=== PATIENT | female | born 1970 | race Caucasian/White ===

== ENCOUNTER → 2019-01-16 | Day surgery (SDC) | payer OTHER ==
[~2019-01-16] MED LIST: IV RINGERS,LACTATED 1000ML 1,000 ML IV SCH; LIDOCAINE 1% PF 2 ML VIAL. ID PRN; MIDAZOLAM HCL/PF 2 MG/2 ML VIAL. IV PRN; PROPOFOL 40 ML IV ONE; fentaNYL PF VIAL 100 MCG/2 ML VIAL IV PRN
[2019-01-16 08:56] VITALS: BP 121/76
--- NOTE | 2019-01-16 09:45 | HP ---
ADMIT DATE: 01/16/2019 UPDATED HISTORY AND PHYSICAL REFERRING PHYSICIAN: Sandra Owen MD REASON: Colorectal screening. HISTORY: A 48-year-old female whose past medical history is significant for hypertension as well as cardiac arrhythmias with a defibrillator as well as an appendectomy, is seen for screening colon exam. Bowel habits are regular without diarrhea or constipation. There has been no melena and/or hematochezia. Weight and appetite are stable. Family history is positive for colon polyps with her mother, but negative for colon cancer. PAST MEDICAL HISTORY: Cardiomyopathy, hyperlipidemia, status post appendectomy, status post defibrillator placement. MEDICATIONS: Include fenofibrate, carvedilol, lisinopril, aspirin, fish oil, vitamin D, disulfiram and multivitamin. FAMILY AND SOCIAL HISTORY: Colon polyps with her mother, hypertension with her grandfather, [place] with her grandfather. Social drinker, nonsmoker. REVIEW OF SYSTEMS: Per records. PHYSICAL EXAMINATION: GENERAL: Reveals a well-nourished, well-developed male, who is alert, cooperative, in no acute distress. VITAL SIGNS: Temp is 97.3, pulse 65, respirations 20. HEENT: Normocephalic and atraumatic head. Pupils and extraocular muscles are not tested. Sclerae anicteric. NECK: Supple. LUNGS: Clear. CARDIOVASCULAR: Reveals an S1 and S2 without S3, S4 or appreciable murmur. Defibrillator is noted in the anterior chest. ABDOMEN: Reveals soft abdomen, normal bowel sounds, without appreciable hepatosplenomegaly, right lower quadrant appendectomy incision. EXTREMITIES: Reveals no cyanosis, clubbing, edema. IMPRESSION: Colorectal screening is warranted at this time. Risks and benefits were discussed with the patient including risk of hemorrhage and perforation. She is willing to proceed. ABDIEL YEH MD DR: STEPHANIE/honey JOB#: [id number] / [id number]
--- NOTE | 2019-01-17 20:06 | PATHOLOGY ---
[facility] Accession Number: [id number] . 01 Material submitted: . colon - ASCENDING COLON POLYP. Modifiers: ascending . 01 Clinical history: . Screening . 02 Diagnosis: Colon, ascending, biopsy: - Adenomatous polyp. . (SKM:mml; 01/17/2019) QL/01/17/2019 . 02 Electronically signed: . Leonardo Adams MD, Pathologist NPI- [id number] . 01 Gross description: . Received in formalin labeled "Vitor Rodriguez, ascending colon polyp," is a single segment of thompson soft tissue measuring 0.6 cm in maximum dimension. The specimen is entirely submitted in cassette A1. (TSD; 01/16/2019) TOB/TOB . 02 Pathologist provided ICD-10: D12.2 . 02 CPT . 652673 Specimen Comment: A courtesy copy of this report has been sent to Specimen Comment: [phone], . Specimen Comment: Report sent to / DR SANDY Performed at: 01 [facility] [address], [place] [id number] MD Maxwell Decker MD Phone: [phone] Performed at: 02 [facility] [address], [place] [id number] MD Kj Wilson MD Phone: [phone]
== END ==
LOC: SURG 07:00
PROVIDERS: ATTEND Internal Medicine Gastroenterology
DX: Z12.11 Encounter for screening for malignant neoplasm of colon (principal); D12.2 Benign neoplasm of ascending colon; K57.30 Diverticulosis of large intestine without perforation or abscess without bleeding; K64.0 First degree hemorrhoids; E78.5 Hyperlipidemia, unspecified; Z80.0 Family history of malignant neoplasm of digestive organs; Z98.890 Other specified postprocedural states; Z95.810 Presence of automatic (implantable) cardiac defibrillator; Z83.71 Family history of colonic polyps
CPT/HCPCS: 45385; 88305; J2704; 45380